=== PATIENT | female | born 1975 | race Caucasian/White ===

== ENCOUNTER 2016-11-06 16:39 | Emergency (ER) ==
[2016-11-06 16:49] VITALS: BP 119/89; TEMP 97.6; BMI 22.6
[2016-11-06] MEDS ORDERED: GI COCKTAIL PO STA (16:50)
[2016-11-06] MEDS ORDERED: CARAFATE PO STA (16:50)
--- NOTE | 2016-11-06 17:05 | ED.PDOC ---
General ED Provider: Dr. NICOLE PADILLA Chief Complaint: Nausea/Vomiting Stated Complaint: Patient took 2 cap of neuroXR, which started severe abdominal cramps, and nausea vomiting. Time Seen by Physician: 17:06 Mode of Arrival: Walk-In Information Source: Patient Nursing and Triage Documentation Reviewed and Agree: Yes GI Complaint Exam - Abdominal Pain Complaint/Exam Onset: Sudden Symptoms Are: Still present Timing: Constant Initial Severity: Moderate Current Severity: Moderate Location of Pain: Epigastric Character: Reports: Aching, Throbbing Aggravating: Reports: Food Alleviating: Reports: None Associated Signs and Symptoms: Denies: Diaphoresis, Fever, Cough, Chest pain, Dizziness, Back pain, Constipation, Blood in stool, Dysuria, Urinary frequency, Decreased urine output, Decreased appetite, Vaginal bleeding, Vaginal discharge , Nausea, Vomiting, Diarrhea, Sore throat, Decreased activity AAA Risk Factors: Reports: None Cardiac Risk Factors: Reports: None Ectopic Risk Factors: Reports: None Ovarian Torsion Risk Factors: Reports: None Surgical Obstruction Risk Factors: Reports: None Related Surgical History: Reports: None Patient Rh Status: Unknown Abdominal Findings: Present: None Differential Diagnoses: Other (gastritis) Review of Systems - Review Of Systems Constitutional: Reports: No symptoms Eyes: Reports: No symptoms Ears, Nose, Mouth, Throat: Reports: No symptoms Respiratory: Reports: No symptoms Cardiac: Reports: No symptoms GI: Reports: Abdominal pain, Nausea : Reports: No symptoms Musculoskeletal: Reports: No symptoms Skin: Reports: No symptoms Neurological: Reports: No symptoms Endocrine: Reports: No symptoms Hematologic/Lymphatic: Reports: No symptoms All Other Systems: Reviewed and Negative Past Medical History - Past Medical History Previously Healthy: Yes Endocrine: Reports: None Cardiovascular: Reports: None Respiratory: Reports: None Hematological: Reports: None Gastrointestinal: Reports: None Genitourinary: Reports: None Neuro/Psych: Reports: None Musculoskeletal: Reports: None Cancer: Reports: None Last Menstrual Period: 11/04/2016 - Surgical History General Surgical History: Reports: None - Family History Family History: Reports: None - Social History Smoking Status: Current every day smoker Smoking Cessation Counseling Time: > 3 min - 10 min Hx Substance Use: No Alcohol Screening: Occasionally - Immunizations Tetanus Shot up to Date: No Physical Exam - Physical Exam Appearance: Ill-appearing Eyes: HELGA, EOMI, Conjunctiva clear ENT: Ears normal, Nose normal, Oropharynx normal Respiratory: Airway patent, Breath sounds clear, Breath sounds equal, Respirations nonlabored Cardiovascular: RRR, Pulses normal, No rub, No murmur GI/: Tender (epigastric) Musculoskeletal: Normal strength, ROM intact, No edema, No calf tenderness Skin: Warm, Dry, Normal color Neurological: Sensation intact, Motor intact, Reflexes intact, Cranial nerves intact, Alert, Oriented Psychiatric: Affect appropriate, Mood appropriate Critical Care Note - Critical Care Note Total Time (mins): 0 Course - Course Orders, Labs, Meds: Orders Category Date Time Status Mag-Al Plus//Lidocaine [Gi Cocktail] MEDS 11/06/16 16:50 Discontinued 30 ml PO ONCE STA Sucralfate Susp [Carafate] MEDS 11/06/16 16:50 Discontinued 1 gm PO ONCE STA Medications Discontinued Medications Generic Name Dose Route Start Last Admin Trade Name Freq PRN Reason Stop Dose Admin Al Hydroxide/Mg Hydroxide 30 ml 11/06/16 16:50 11/06/16 16:56 Gi Cocktail PO 11/06/16 16:51 30 ml ONCE STA Administration Sucralfate 1 gm 11/06/16 16:50 11/06/16 16:56 Carafate PO 11/06/16 16:51 1 gm ONCE STA Administration Vital Signs: Temp Pulse Resp BP Pulse Ox 11/06/16 16:43 97.6 F 103 H 20 119/89 98 Departure - Departure Time of Disposition: 17:04 Disposition: HOME SELF-CARE Discharge Problem: Acute gastritis Qualifiers: Gastritis type: other gastritis Gastritis bleeding: without bleeding Qualified Code(s): K29.00 - Acute gastritis without bleeding Instructions: Gastritis (ED) Condition: Good Pt referred to PMD for follow-up: Yes Additional Instructions: Increase hydration soft diet 2-3 days off work for 2 days f/u at [facility] [phone] Prescriptions: Ondansetron [Zofran Odt] 4 mg PO Q8H #20 tab.rapdis Ranitidine HCl [Zantac] 150 mg PO BIDAC #20 tablet Sucralfate Susp [Carafate] 1 gm PO ACHS #1 bottle Allergies/Adverse Reactions: Allergies shellfish derived Adverse Reaction (Verified 12/10/13 16:30) Home Medications: Ambulatory Orders Ondansetron [Zofran Odt] 4 mg PO Q8H #20 tab.rapdis 11/06/16 Ranitidine HCl [Zantac] 150 mg PO BIDAC #20 tablet 11/06/16 Sucralfate Susp [Carafate] 1 gm PO ACHS #1 bottle 11/06/16 Disposition Discussed With: Patient
[2016-11-06] MEDS ORDERED: ZOFRAN ODT PO STA (17:07)
== END 2016-11-06 17:33 | disposition home or self-care (01) ==
LOC: ED 16:39
DX: K29.00 Acute gastritis without bleeding (principal); F17.210 Nicotine dependence, cigarettes, uncomplicated
CPT/HCPCS: 99282

== ENCOUNTER 2018-10-19 13:51 | Outpatient (CLI) | END 2018-10-19 14:08 | disposition short-term general hospital (02) | LOC: AMBL 13:51 | PROVIDERS: ATTEND Internal Medicine Geriatric Medicine | DX: T43.592A Poisoning by other antipsychotics and neuroleptics, intentional self-harm, initial encounter (principal); R47.81 Slurred speech; H53.8 Other visual disturbances; R53.83 Other fatigue; R63.1 Polydipsia; R00.0 Tachycardia, unspecified ==